=== PATIENT | female | born 1955 | race Caucasian/White ===

== ENCOUNTER 2016-09-29 09:54 | Emergency (ER) | payer MEDICAID ==
[2015-12-16 11:07] VITALS: BMI 45.7
[~2016-09-29 09:54] MED LIST: AMITRIPTYLINE100 MG PO; BAYER CHEWABLE81 MG PO; CATAPRES0.1 MG PO; CHLORTHALIDONE25 MG PO; GEMFIBROZIL600 MG PO; HUMALOG 30100 UNITS/; HUMALOG 30100 UNITS/ SC; LANTUS INSULIN10 ML SC; LEVAQUIN500 MG PO; LYRICA300 MG PO; MULTIPLE VITAMI1 TA1 PO; NORCO 7.5/325 T1 TA1 PO; PRAVACHOL20 MG PO; PRAVASTATIN PO; ZANTAC150 MG PO; ZESTRIL40 MG PO
== END 2016-09-29 10:57 | disposition home or self-care (01) ==
LOC: D.ER 09:54
DX: F32.9 Major depressive disorder, single episode, unspecified (principal); F17.200 Nicotine dependence, unspecified, uncomplicated; I95.9 Hypotension, unspecified; E11.9 Type 2 diabetes mellitus without complications; Z79.4 Long term (current) use of insulin; G89.29 Other chronic pain

== ENCOUNTER 2017-01-10 21:52 | Emergency (ER) | payer MEDICAID ==
[2015-12-16 11:07] VITALS: BMI 45.7
[2017-01-10 22:37] LABS: APPEARANCE CLEAR (CLEAR); BILIRUBIN NEGATIVE (NEGATIVE); COLOR YELLOW (YELLOW); GLUCOSE NEGATIVE (NEGATIVE); KETONE NEGATIVE (NEGATIVE); LEUKOCYTE ESTERASE NEGATIVE (NEGATIVE); NITRITE NEGATIVE (NEGATIVE); PROTEIN TRACE mg/dL (NEGATIVE); UROBILINOGEN NORMAL (NORMAL)
[2017-01-10 22:54] LABS: UDS - AMPHET NEGATIVE QUAL (NEGATIVE); UDS - BARB NEGATIVE QUAL (NEGATIVE); UDS - BENZO POSITIVE QUAL (NEGATIVE); UDS - COCAINE NEGATIVE QUAL (NEGATIVE); UDS - METH NEGATIVE QUAL (NEGATIVE); UDS - OPIATE POSITIVE QUAL (NEGATIVE); UDS - PCP NEGATIVE QUAL (NEGATIVE); UDS - THC NEGATIVE QUAL (NEGATIVE)
[2017-01-10 23:12] LABS: BASOPHILS 0.7 % (0-2); EOSINOPHILS 7.6 % (0-7); HEMATOCRIT 40.5 % (36.0-48.0); HEMOGLOBIN 13.1 g/dL (12-16); LYMPHOCYTES 49.3 % (15-50); MCH 31.2 pg (26.0-34.0); MCHC 32.3 g/dL (31.0-37.0); MCV 96.4 fL (80.0-100.0); MEAN PLATELET VOLUME 10.7 fL (7.4-10.4); MONOCYTES 4.6 % (2-11); NEUTROPHILS 37.8 % (40-80); PLATELET COUNT 171 10x3/uL (130-400); WBC 5.7 10x3/uL (4.8-10.8)
[2017-01-10 23:14] LABS: KETONE - SERUM NEGATIVE (NEGATIVE)
[2017-01-10 23:22] LABS: ALBUMIN 3.5 g/dL (3.4-5.0); ALKALINE PHOSPHATASE 116 U/L (46-116); ALT (SGPT) 24 U/L (10-68); BILIRUBIN - TOTAL 0.24 mg/dL (0.2-1.3); CALC OSMOLALITY 285 mosm/kg (275-300); CALCIUM 9.5 mg/dL (8.5-10.1); CARBON DIOXIDE 32.5 mmol/L (21.0-32.0); CHLORIDE - SERUM 107 mmol/L (98-107); CREATININE - SERUM 1.5 mg/dL (0.6-1.3); GLUCOSE 106 mg/dL (74-106); POTASSIUM - SERUM 3.9 mmol/L (3.5-5.1); PROTEIN - SERUM 7.5 g/dL (6.4-8.2); SODIUM 144 mmol/L (136-145); UREA NITROGEN 10 mg/dL (7-18); eGFR NON AFRICAN AMERICAN 37 mL/min (90-120)
== END 2017-01-11 02:47 | disposition short-term general hospital (02) ==
LOC: D.ER 21:52
PROVIDERS: Emergency Medicine
DX: R45.851 Suicidal ideations (principal); F32.9 Major depressive disorder, single episode, unspecified; I95.9 Hypotension, unspecified; F17.200 Nicotine dependence, unspecified, uncomplicated

== ENCOUNTER 2017-02-28 21:47 | Emergency (ER) | payer MEDICAID ==
[2015-12-16 11:07] VITALS: BMI 45.7
[2017-03-01 00:46] LABS: BASOPHILS 0.6 % (0-2); EOSINOPHILS 5.9 % (0-7); HEMATOCRIT 44.4 % (36.0-48.0); HEMOGLOBIN 14.7 g/dL (12-16); IMMATURE GRANULOCYTES 0.2 % (0-5); LYMPHOCYTES 44.5 % (15-50); MCH 30.9 pg (26.0-34.0); MCHC 33.1 g/dL (31.0-37.0); MCV 93.5 fL (80.0-100.0); MEAN PLATELET VOLUME 12.1 fL (7.4-10.4); MONOCYTES 7.6 % (2-11); NEUTROPHILS 41.2 % (40-80); PLATELET COUNT 197 10x3/uL (130-400); RBC 4.75 10x6/uL (4.00-5.40); RDW 13.5 % (11.5-14.5); WBC 6.3 10x3/uL (4.8-10.8)
[2017-03-01 01:11] LABS: ALBUMIN 3.6 g/dL (3.4-5.0); ANION GAP 14.4 mmol/L (8-16); BILIRUBIN - TOTAL 0.35 mg/dL (0.2-1.3); CALCIUM 9.6 mg/dL (8.5-10.1); CARBON DIOXIDE 26.3 mmol/L (21.0-32.0); POTASSIUM - SERUM 3.7 mmol/L (3.5-5.1); PROTEIN - SERUM 7.2 g/dL (6.4-8.2)
== END 2017-03-01 01:42 | disposition home or self-care (01) ==
LOC: D.ER 21:47
PROVIDERS: Physician Assistant Medical
DX: I10 Essential (primary) hypertension (principal); J06.9 Acute upper respiratory infection, unspecified; F17.200 Nicotine dependence, unspecified, uncomplicated

== ENCOUNTER → 2018-02-01 12:15 | Outpatient (CLI) | payer MEDICAID ==
[2015-12-16 11:07] VITALS: BMI 45.7
== END | disposition home or self-care (01) ==
LOC: D.MAMMO 12:15
DX: Z12.31 Encounter for screening mammogram for malignant neoplasm of breast (principal)

== ENCOUNTER 2018-07-07 22:50 | Inpatient (IN) | payer MEDICAID ==
[~2018-07-07] VITALS: Ht 157.5 cm; Wt 109.1 kg
[2018-07-07] MEDS ORDERED: INSULIN GLARGINE (23:08)
[2018-07-07] MEDS ORDERED: TYLENOL W/CODEI1 TAB PO (23:09)
[2018-07-07] MEDS ORDERED: HUMALOG 30100 UNITS/ (23:09)
[2018-07-07] MEDS ORDERED: VALIUM5 MG PO (23:10)
[2018-07-07] MEDS ORDERED: GABAPENTIN100 MG PO (23:10)
[2018-07-07] MEDS ORDERED: LOPID600 MG PO (23:10)
[2018-07-07] MEDS ORDERED: NORVASC10 MG PO (23:10)
[2018-07-07] MEDS ORDERED: RANITIDINE HCL150 M1 PO (23:11)
[2018-07-07] MEDS ORDERED: ROBAXIN500 MG PO (23:11)
[2018-07-07 23:22] LABS: BASOPHILS 0.5 % (0-2); EOSINOPHILS 3.1 % (0-7); HEMATOCRIT 41.8 % (36.0-48.0); HEMOGLOBIN 13.9 g/dL (12-16); IMMATURE GRANULOCYTES 1.2 % (0-5); LYMPHOCYTES 29.8 % (15-50); MCH 31.5 pg (26.0-34.0); MCHC 33.3 g/dL (31.0-37.0); MCV 94.8 fL (80.0-100.0); MEAN PLATELET VOLUME 10.9 fL (7.4-10.4); MONOCYTES 8.4 % (2-11); PLATELET COUNT 236 10x3/uL (130-400); RBC 4.41 10x6/uL (4.00-5.40); RDW 13.3 % (11.5-14.5); WBC 10.9 10x3/uL (4.8-10.8)
[2018-07-07 23:32] LABS: ALKALINE PHOSPHATASE 127 U/L (46-116); ALT (SGPT) 36 U/L (10-68); BILIRUBIN - TOTAL 0.37 mg/dL (0.2-1.3); CALC OSMOLALITY 284 mosm/kg (275-300); CALCIUM 9.9 mg/dL (8.5-10.1); CARBON DIOXIDE 30.7 mmol/L (21.0-32.0); CHLORIDE - SERUM 99 mmol/L (98-107); POTASSIUM - SERUM 4.1 mmol/L (3.5-5.1); SODIUM 138 mmol/L (136-145); UREA NITROGEN 12 mg/dL (7-18); eGFR NON AFRICAN AMERICAN 59 mL/min (90-120)
[2018-07-07 23:36] LABS: GLUCOSE 262 mg/dL (74-106)
[2018-07-07 23:40] LABS: PRO BNP 1296 pg/mL (0-125)
[2018-07-07 23:41] LABS: TROPONIN-I < 0.017 ng/mL (0.000-0.060)
[2018-07-08 00:06] VITALS: BP 152/73
[2018-07-08 01:22] LABS: APPEARANCE CLEAR (CLEAR); BILIRUBIN NEGATIVE (NEGATIVE); COLOR YELLOW (YELLOW); GLUCOSE 100 mg/dL (NEGATIVE); KETONE NEGATIVE (NEGATIVE); NITRITE NEGATIVE (NEGATIVE); PROTEIN NEGATIVE (NEGATIVE); UROBILINOGEN NORMAL (NORMAL)
[2018-07-08 03:08] VITALS: BP 193/104; Ht 157.5 cm; Wt 109.1 kg
[2018-07-08 04:17] VITALS: BP 124/68
[2018-07-08 08:43] VITALS: BP 152/76
[2018-07-08 11:21] LABS: BASOPHILS 0.2 % (0-2); EOSINOPHILS 2.7 % (0-7); HEMATOCRIT 36.9 % (36.0-48.0); HEMOGLOBIN 12.3 g/dL (12-16); MCH 31.2 pg (26.0-34.0); MCHC 33.3 g/dL (31.0-37.0); MCV 93.7 fL (80.0-100.0); MEAN PLATELET VOLUME 10.7 fL (7.4-10.4); NEUTROPHILS 66.1 % (40-80); PLATELET COUNT 198 10x3/uL (130-400); RBC 3.94 10x6/uL (4.00-5.40); RDW 13.1 % (11.5-14.5)
[2018-07-08 11:22] LABS: WBC 8.1 10x3/uL (4.8-10.8)
[2018-07-08 11:47] LABS: ANION GAP 12.6 mmol/L (8-16); CALCIUM 9.5 mg/dL (8.5-10.1); CARBON DIOXIDE 29.7 mmol/L (21.0-32.0); CREATININE - SERUM 1.2 mg/dL (0.6-1.3); POTASSIUM - SERUM 4.3 mmol/L (3.5-5.1)
[2018-07-08 12:00] VITALS: BP 170/107
[2018-07-08 15:00] VITALS: BP 157/65
[2018-07-08] MEDS ORDERED: ELIQUIS5 MG PO ×2 (16:14→16:16)
[2018-07-08] MEDS ORDERED: CATAPRES0.2 MG PO (16:16)
[2018-07-09] MEDS ORDERED: PERCOCET 7.5/321 TAB PO (13:08)
== END 2018-07-08 19:53 | disposition home or self-care (01) | DRG 300 ==
LOC: D.ER 22:50 → D.EDHOLD 07-08 01:12 → D.MS 07-08 01:24
PROVIDERS: Family Medicine; Internal Medicine Nephrology
DX: I82.402 Acute embolism and thrombosis of unspecified deep veins of left lower extremity (principal); F17.203 Nicotine dependence unspecified, with withdrawal; I10 Essential (primary) hypertension; G89.29 Other chronic pain; M54.5 Low back pain; K21.9 Gastro-esophageal reflux disease without esophagitis; F32.9 Major depressive disorder, single episode, unspecified; F90.9 Attention-deficit hyperactivity disorder, unspecified type; E11.40 Type 2 diabetes mellitus with diabetic neuropathy, unspecified

== ENCOUNTER 2018-07-09 12:11 | Emergency (ER) | payer MEDICAID ==
[~2018-07-09] VITALS: Ht 157.5 cm; Wt 109.1 kg
[~2018-07-09 12:11] MED LIST changes: +CATAPRES0.2 MG PO; +ELIQUIS5 MG PO; +GABAPENTIN100 MG PO; +INSULIN GLARGINE; +LOPID600 MG PO; +NORVASC10 MG PO; +RANITIDINE HCL150 M1 PO; +ROBAXIN500 MG PO; +TYLENOL W/CODEI1 TAB PO; +VALIUM5 MG PO
[2018-07-09 12:14] VITALS: Ht 157.5 cm; Wt 109.1 kg
[2018-07-09] MEDS ORDERED: PERCOCET 7.5/321 TAB PO (13:08)
[2018-07-09 13:40] VITALS: BP 132/95
== END 2018-07-09 13:55 | disposition home or self-care (01) ==
LOC: D.ER 12:11
DX: T40.2X5A Adverse effect of other opioids, initial encounter (principal); Y92.019 Unspecified place in single-family (private) house as the place of occurrence of the external cause; E11.9 Type 2 diabetes mellitus without complications; I10 Essential (primary) hypertension; Z86.718 Personal history of other venous thrombosis and embolism; K21.9 Gastro-esophageal reflux disease without esophagitis; F90.9 Attention-deficit hyperactivity disorder, unspecified type

== ENCOUNTER 2018-07-11 12:55 | Observation (INO) | payer MEDICAID ==
[~2018-07-11] VITALS: Ht 157.5 cm; Wt 90.7 kg
--- NOTE | ~2018-07-11 | MORECARE ---
CASE MANAGEMENT DISCHARGE SUMMARY PATIENT: AGNES DOMINGUEZ UNIT: [id number] ADM DATE: 07/11/18 AGE: 63 : 57 SEX: F ROOM/BED: D.2236 AUTHOR: MARY CHU PHYSICIAN: REFERRING PHYSICIAN: VIOLA MCRAE MD DATE OF SERVICE: 07/12/18 Discharge Plan Patient Name: AGNES DOMINGUEZ Facility: [facility]:[place] : 1955 Planned Disposition: Home Anticipated Discharge Date: 07/12/18 Discharge Date: 07/12/2018 Expected LOS: 1 Initial Reviewer: [email or web address] Initial Review Date: 07/12/2018 Generated: 07/12/18 3:26 pm Comments DCP- Discharge Planning Updated by [email or web address]: Leslie Benson on 07/12/18 10:[address] Patient Name: AGNES DOMINGUEZ Admission Status: ER Accout number: [id number] Admission Date: 07-11-2018 : 1955 Admission Diagnosis: Attending: VIOLA MCRAE Current LOS: 1 Anticipated DC Date: 07-12-2018 Planned Disposition: Home Primary Insurance: MEDICAID [place] Discharge Planning Comments: CM met with patient and her son to discuss discharge planning. She states she lives with her son. Her son will take her home on discharge. She is independent with all her care. She has not driven since her back surgery, but her son drives her where she needs to go. She has [facility] and [facility] ( a Medicaid program that coordinates her care). She declines further needs for DME. No needs identified. Will go home with the resumption of home health care today. CM will continue to follow and assist with discharge planning/needs. Liaison Planner: Leslie Benson DCPIA - Discharge Planning Initial Assessment Updated by [email or web address]: Leslie Benson on 07/12/18 11:54 am * Is the patient Alert and Oriented? Yes * How many steps to enter\exit or inside your home? 1/0 * PCP Alejandra Luke at [facility] * [facility] [address] * Preadmission Environment Home with Family * ADLs Independent * Equipment Cane Other Walker * Other Equipment Walking sticks Quad cane * List name and contact numbers for known caregivers / representatives who currently or will assist patient after discharge: Elijah hurst - [phone] * Verbal permission to speak to the caregivers and representatives has been obtained from the patient. Yes * Community resources currently utilized Home Health * Please name any agencies selected above. [facility] (Medicaid program) * Additional services required to return to the preadmission environment? No * Can the patient safely return to the preadmission environment? Yes * Has this patient been hospitalized within the prior 30 days at any hospital? Yes Last DP export: 07/12/18 11:02 Patient Name: AGNES DOMINGUEZ Page 01370 at 1426 All edits/amendments must be made on the electronic document DICTATION DATE: 07/12/181424 COMMERCIAL CONSTRUCTION PROJECT MANAGER: GLO 07/12/181424 RPT#: [id number] DC DATE:07/12/18 STATUS: DIS IN [facility] [address] [place] [address] END OF REPORT
--- NOTE | ~2018-07-11 | MORECARE ---
CASE MANAGEMENT DISCHARGE SUMMARY PATIENT: AGNES DOMINGUEZ UNIT: [id number] ADM DATE: 07/11/18 AGE: 63 : 57 SEX: F ROOM/BED: D.2236 AUTHOR: MARY CHU PHYSICIAN: REFERRING PHYSICIAN: VIOLA MCRAE MD DATE OF SERVICE: 07/12/18 Discharge Plan Patient Name: AGNES DOMINGUEZ Facility: [facility]:[place] : 1955 Planned Disposition: Home Anticipated Discharge Date: 07/12/18 Discharge Date: Expected LOS: 1 Initial Reviewer: [email or web address] Initial Review Date: 07/12/2018 Generated: 07/12/18 12:54 pm DCPIA - Discharge Planning Initial Assessment Updated by [email or web address]: Leslie Benson on 07/12/18 11:54 am * Is the patient Alert and Oriented? Yes * How many steps to enter\exit or inside your home? 1/0 * PCP Alejandra Luke at [facility] * [facility] [address] * Preadmission Environment Home with Family * ADLs Independent * Equipment Cane Other Walker * Other Equipment Walking sticks Quad cane * List name and contact numbers for known caregivers / representatives who currently or will assist patient after discharge: Elijah hurst - [phone] * Verbal permission to speak to the caregivers and representatives has been obtained from the patient. Yes * Community resources currently utilized Home Health * Please name any agencies selected above. [facility] (Medicaid program) * Additional services required to return to the preadmission environment? No * Can the patient safely return to the preadmission environment? Yes * Has this patient been hospitalized within the prior 30 days at any hospital? Yes Patient Name: AGNES DOMINGUEZ Page 50492 at 1154 All edits/amendments must be made on the electronic document DICTATION DATE: 07/12/18 1154 TEMPLATE REPRODUCTION TECHNICIAN: GLO 07/12/18 1154 RPT#: [id number] DC DATE: STATUS: ADM IN [facility] [address] [place] [address] END OF REPORT
--- NOTE | ~2018-07-11 | MORECARE ---
CASE MANAGEMENT DISCHARGE SUMMARY PATIENT: AGNES DOMINGUEZ UNIT: [id number] ADM DATE: 07/11/18 AGE: 63 : 57 SEX: F ROOM/BED: D.2236 AUTHOR: MARY CHU PHYSICIAN: REFERRING PHYSICIAN: VIOLA MCRAE MD DATE OF SERVICE: 07/12/18 Discharge Plan Patient Name: AGNES ODMINGUEZ Facility: [facility]:[place] : 1955 Planned Disposition: Home Anticipated Discharge Date: 07/12/18 Discharge Date: Expected LOS: 1 Initial Reviewer: [email or web address] Initial Review Date: 07/12/2018 Generated: 07/12/18 1:01 pm Comments DCP- Discharge Planning Updated by [email or web address]: Leslie Benson on 07/12/18 10:[address] Patient Name: AGNES DOMINGUEZ Admission Status: ER Accout number: [id number] Admission Date: 07-11-2018 : 1955 Admission Diagnosis: Attending: VIOLA MCRAE Current LOS: 1 Anticipated DC Date: 07-12-2018 Planned Disposition: Home Primary Insurance: MEDICAID [place] Discharge Planning Comments: CM met with patient and her son to discuss discharge planning. She states she lives with her son. Her son will take her home on discharge. She is independent with all her care. She has not driven since her back surgery, but her son drives her where she needs to go. She has [facility] and [facility] ( a Medicaid program that coordinates her care). She declines further needs for DME. No needs identified. Will go home with the resumption of home health care today. CM will continue to follow and assist with discharge planning/needs. Resident Services Manager: Leslie Benson DCPIA - Discharge Planning Initial Assessment Updated by [email or web address]: Leslie Benson on 07/12/18 11:54 am * Is the patient Alert and Oriented? Yes * How many steps to enter\exit or inside your home? 1/0 * PCP Alejandra Luke at [facility] * [facility] [address] * Preadmission Environment Home with Family * ADLs Independent * Equipment Cane Other Walker * Other Equipment Walking sticks Quad cane * List name and contact numbers for known caregivers / representatives who currently or will assist patient after discharge: Elijah hurst - [phone] * Verbal permission to speak to the caregivers and representatives has been obtained from the patient. Yes * Community resources currently utilized Home Health * Please name any agencies selected above. [facility] (Medicaid program) * Additional services required to return to the preadmission environment? No * Can the patient safely return to the preadmission environment? Yes * Has this patient been hospitalized within the prior 30 days at any hospital? Yes Last DP export: 07/12/18 10:54 Patient Name: AGNES DOMINGUEZ Page 25647 at 1202 All edits/amendments must be made on the electronic document DICTATION DATE: 07/12/18 120 MARBLE WORKER: GLO 07/12/18 120 RPT#: [id number] DC DATE: STATUS: ADM IN [facility] [address] [place] [address] END OF REPORT
[~2018-07-11 12:55] MED LIST changes: +PERCOCET 7.5/321 TAB PO
[2018-07-11 13:30] VITALS: BP 161/81
[2018-07-11 14:31] VITALS: BP 154/82
[2018-07-11 14:38] LABS: UDS - AMPHET NEGATIVE QUAL (NEGATIVE); UDS - BARB NEGATIVE QUAL (NEGATIVE); UDS - BENZO POSITIVE QUAL (NEGATIVE); UDS - COCAINE NEGATIVE QUAL (NEGATIVE); UDS - OPIATE POSITIVE QUAL (NEGATIVE); UDS - PCP NEGATIVE QUAL (NEGATIVE); UDS - THC NEGATIVE QUAL (NEGATIVE)
[2018-07-11 14:54] LABS: BASOPHILS 0.6 % (0-2); HEMATOCRIT 38.7 % (36.0-48.0); HEMOGLOBIN 12.7 g/dL (12-16); IMMATURE GRANULOCYTES 0.8 % (0-5); LYMPHOCYTES 36.1 % (15-50); MCH 31.1 pg (26.0-34.0); MCHC 32.8 g/dL (31.0-37.0); MCV 94.9 fL (80.0-100.0); MEAN PLATELET VOLUME 10.7 fL (7.4-10.4); MONOCYTES 4.6 % (2-11); NEUTROPHILS 54.9 % (40-80); RBC 4.08 10x6/uL (4.00-5.40); RDW 13.4 % (11.5-14.5)
[2018-07-11 15:06] LABS: APPEARANCE CLEAR (CLEAR); BILIRUBIN NEGATIVE (NEGATIVE); COLOR YELLOW (YELLOW); GLUCOSE NEGATIVE (NEGATIVE); KETONE NEGATIVE (NEGATIVE); NITRITE NEGATIVE (NEGATIVE); PROTEIN 1+ mg/dL (NEGATIVE); UROBILINOGEN NORMAL (NORMAL)
[2018-07-11 15:07] LABS: WHITE CELLS - URINE 0-5 /hpf (0-5)
[2018-07-11 15:08] LABS: BACTERIA FEW /hpf (NONE SEEN)
[2018-07-11 15:11] LABS: PLATELET COUNT 294 10x3/uL (130-400)
[2018-07-11 15:14] LABS: ALBUMIN 2.9 g/dL (3.4-5.0); ALKALINE PHOSPHATASE 99 U/L (46-116); ALT (SGPT) 33 U/L (10-68); BILIRUBIN - TOTAL 0.19 mg/dL (0.2-1.3); CALCIUM 9.2 mg/dL (8.5-10.1); CARBON DIOXIDE 30.7 mmol/L (21.0-32.0); CHLORIDE - SERUM 101 mmol/L (98-107); CREATININE - SERUM 1.2 mg/dL (0.6-1.3); POTASSIUM - SERUM 3.9 mmol/L (3.5-5.1); PROTEIN - SERUM 7.2 g/dL (6.4-8.2); SODIUM 139 mmol/L (136-145); UREA NITROGEN 20 mg/dL (7-18); eGFR NON AFRICAN AMERICAN 48 mL/min (90-120)
[2018-07-11 15:31] LABS: CALC OSMOLALITY 287 mosm/kg (275-300); GLUCOSE 224 mg/dL (74-106); TROPONIN-I < 0.017 ng/mL (0.000-0.060)
[2018-07-11 15:44] VITALS: BP 174/99
[2018-07-11 17:01] VITALS: BP 166/93
[2018-07-11 21:17] LABS: CKMB 1.5 U/L (0.0-3.6); CREATINE KINASE 47 UL (21-215)
[2018-07-11 21:18] LABS: TROPONIN-I < 0.017 ng/mL (0.000-0.060)
[2018-07-12 02:01] LABS: CREATINE KINASE 52 UL (21-215); TROPONIN-I < 0.017 ng/mL (0.000-0.060)
[2018-07-12 02:58] VITALS: BP 143/88; BMI 36.6
[2018-07-12 05:00] VITALS: BP 140/71
[2018-07-12 08:26] VITALS: BP 155/85
[2018-07-12 09:40] VITALS: Ht 157.5 cm; Wt 90.7 kg
[2018-07-12] MEDS ORDERED: ULTRAM50 MG PO (11:33)
[2018-07-12 12:16] VITALS: BP 151/88
== END 2018-07-12 13:46 | disposition home or self-care (01) ==
LOC: D.ER 12:55 → D.MS 21:06 → OBSVTIME 21:06 → D.MS 07-12 13:46
PROVIDERS: Family Medicine
DX: R55 Syncope and collapse (principal); E11.40 Type 2 diabetes mellitus with diabetic neuropathy, unspecified; M79.7 Fibromyalgia; I10 Essential (primary) hypertension; I82.402 Acute embolism and thrombosis of unspecified deep veins of left lower extremity; K21.9 Gastro-esophageal reflux disease without esophagitis; F32.9 Major depressive disorder, single episode, unspecified; F90.9 Attention-deficit hyperactivity disorder, unspecified type

== ENCOUNTER → 2019-05-25 09:08 | Outpatient (CLI) | payer MEDICAID ==
[2018-07-12 09:40] VITALS: BMI 36.6
[~2019-05-25 09:08] MED LIST changes: +ULTRAM50 MG PO
== END | disposition home or self-care (01) ==
LOC: D.RAD 03-15 14:45 → D.RT 03-15 15:00 → D.LAB 03-15 15:30 → D.RAD 03-20 11:15 → D.LAB 03-20 13:15 → D.RAD 04-25 15:00 → D.RT 04-25 15:00 → D.LAB 04-25 15:00 → D.RAD 04-25 15:30 → D.LAB 04-25 15:45
PROVIDERS: ATTEND Internal Medicine Pulmonary Disease
DX: J44.9 Chronic obstructive pulmonary disease, unspecified (principal)